=== PATIENT | male | born 1960 | race African-American/Black ===

== ENCOUNTER 2018-12-26 11:24 | Emergency (ER) | payer OTHER, MEDICAID ==
[~2018-12-26] VITALS: Ht 172.7 cm; Wt 85.0 kg
[2018-12-26] MEDS ORDERED: LIDOCAINE HCL 1% 20ML VIAL (Pyxis) INJ INFIL ONE (11:45)
[2018-12-26 13:20] VITALS: BP 142/78
== END 2018-12-26 13:50 | disposition left against medical advice (07) ==
LOC: ER 11:24
DX: S01.111A Laceration without foreign body of right eyelid and periocular area, initial encounter (principal); S01.411A Laceration without foreign body of right cheek and temporomandibular area, initial encounter; S01.81XA Laceration without foreign body of other part of head, initial encounter; Y04.2XXA Assault by strike against or bumped into by another person, initial encounter; Y93.89 Activity, other specified; Y92.89 Other specified places as the place of occurrence of the external cause
CPT/HCPCS: 12013; 99283; J3490

== ENCOUNTER 2018-12-26 17:00 | Emergency (ER) | payer MEDICAID, OTHER ==
[~2018-12-26] VITALS: Ht 167.6 cm; Wt 82.0 kg
[2018-12-26 17:05] VITALS: BP 138/75
== END 2018-12-26 17:38 | disposition home or self-care (01) ==
LOC: ER 17:00
DX: Z02.2 Encounter for examination for admission to residential institution (principal); Z48.00 Encounter for change or removal of nonsurgical wound dressing
CPT/HCPCS: 99283

== ENCOUNTER 2019-12-17 19:39 | Emergency (ER) | payer MEDICAID, OTHER ==
[~2019-12-17] VITALS: Ht 165.1 cm; Wt 73.0 kg
[2019-12-17 20:43] LABS: BASOPHILS % 0.4 % (0.0-2.0); EOSINOPHILS % 1.3 % (0.0-5.0); HEMATOCRIT. 44.6 % (42.0-52.0); HEMOGLOBIN. 15.3 g/dL (14.0-18.0); LYMPHOCYTES % 33.2 % (20.0-50.0); MEAN CORPUSCULAR HEMOGLOBIN 31.8 pg (28.0-32.0); MEAN CORPUSCULAR VOLUME 92.6 fL (80.0-94.0); MEAN PLATELET VOLUME 9.6 fl (7.4-10.4); MONOCYTES % 7.3 % (2.0-8.0); NEUTROPHILS % 57.8 % (40.0-76.0); PLATELET 136 x1000/uL (130-400); RED BLOOD CELL COUNT 4.81 mill/uL (4.7-6.1); RED CELL DISTRIBUTION WIDTH 15.2 % (11.6-14.6)
[2019-12-17] MEDS ORDERED: SODIUM CHLORIDE 0.9% 1,000 ML IV ONE (21:20)
[2019-12-17] MEDS ORDERED: KETOROLAC 30MG/ML VIAL IV STA (21:20)
[2019-12-17 21:27] LABS: CHLORIDE 104 mEq/L (98-107)
[2019-12-17] MEDS ORDERED: ASPIRIN 81MG TABLET PO ONE (21:30)
[2019-12-17 21:57] LABS: CHLORIDE 105 mEq/L (98-107)
[2019-12-18 01:35] VITALS: BP 140/99
== END 2019-12-18 01:53 | disposition home or self-care (01) ==
LOC: ER 19:39
DX: K66.8 Other specified disorders of peritoneum (principal); K57.30 Diverticulosis of large intestine without perforation or abscess without bleeding; I31.3 Pericardial effusion (noninflammatory); R03.0 Elevated blood-pressure reading, without diagnosis of hypertension
CPT/HCPCS: 36415; 71045; 74176; 80048; 80053; 83690; 83880; 84484; 85025; 93005; 96361; 96374; 99285; J1885; J7030; Z7610